=== PATIENT | female | born 1960 | race Caucasian/White ===

== ENCOUNTER 2017-01-09 17:52 | Emergency (ER) | payer BC, OTHER ==
[2017-01-09 18:05] VITALS: BP 158/117
--- NOTE | 2017-01-09 18:59 | ERNOTE ---
Medical Problem HPI - Narrative Date of Service: 01/09/17 - General Chief Complaint: Flu Symptoms Time Seen by Provider: 01/09/17 18:09 Source: patient, RN notes reviewed Exam Limitations: no limitations - Immun/Allergies/Home Medications Allergies/Adverse Reactions: Allergies No Known Allergies Allergy (Verified 01/09/17 18:05) Home Medications: HOME MEDICATIONS Atorvastatin Calcium [Lipitor] 20 mg PO DAILY 12/09/12 [Last Taken Unknown] Sertraline HCl [Zoloft] 200 mg PO DAILY 12/09/12 [Last Taken Unknown] Metoprolol Tartrate 50 mg PO DAILY 12/12/12 [Last Taken Unknown] - History of Present History Narrative: 56 y/o female ambulatory to the ED for a cough, fever, sore throat and body aches that began 2 days ago. She has been taking Tylenol for fever and reports being stuck in bed for 3 days. Review of Systems - Review of Systems Constitutional: Present: fever, chills, fatigue, malaise EYE: Present: no symptoms reported ENT: Present: nose congestion, nasal drainage, sore throat. Absent: ear pain Respiratory: Present: cough. Absent: shortness of breath, wheezing Cardiology: Absent: chest pain, syncope Gastrointestinal/Abdominal: Present: nausea. Absent: vomiting, diarrhea, abdominal pain Genitourinary: Present: no symptoms reported Musculoskeletal: Present: muscle pain, joint pain Skin: Absent: rash, lesions Neurological: Absent: headache, dizziness/light-headedness Endocrine: Present: no symptoms reported Hematologic/Lymphatic: Present: no symptoms reported Psych: Present: no symptoms reported - Patient's Past Medical History Patient History - Medical: No pertinent hx Patient History - Cardiac/Respiratory: Hypertension, Hyperlipidemia Patient History - Cancer: No Hx of Cancer Patient History - Surgical Procedures: Hysterectomy LMP (females 10-50): Menopausal - Social History Living Situations: home Smoking Status: Current every day smoker Cigarettes Packs Per Day: 0.5 Have you smoked in the past 12 months: Yes Alcohol Use: none Drug Use: none - Immunizations History of Influenza Vaccine: No Physical Exam - Physical Exam General Appearance: Present: wd/wn, alert, no apparent distress Eye Exam: Normal inspection: bilateral Ears, Nose, Throat: Present: hearing grossly normal, nasal congestion, pharyngeal erythema. Absent: abnormal TM (R), abnormal TM (L), sinus pain/ drainage Neck: Present: normal inspection, nontender, supple Respiratory: Present: no respiratory distress, normal breath sounds, no accessory muscle use, lungs clear Cardiovascular/Chest: Present: regular rate, rhythm, no murmur, normal peripheral pulses Neurological Exam: Present: alert, oriented, normal mood/affect Skin Exam: Present: normal color, warm/dry ED Progress - Results and Orders Patient's Lab Results:: I have reviewed the patient's lab results. - Vital Signs Patient's Vital Signs:: I have reviewed the patient's vital signs. Vital Signs: Vital Signs 01/09/17 18:03 Temperature 37.5 C Pulse Rate 82 Respiratory 12 Rate Blood Pressure 158/117 O2 Sat by Pulse 98 Oximetry - Progress/Reassessment Chief Complaint: Flu Symptoms Progress:: Unchanged Departure - Departure Clinical Impression: Influenza-like illness Disposition: Home Follow Up Needed Condition: Stable Instructions: Influenza, Adult, [id number], Form - Excuse from Work, School, or Physical Activity Additional Instructions: Continue symptomatic treatment Follow up with your doctor if no improvement by mid-week Referrals: Allen Lin DO [Primary Care Provider] -
== END 2017-01-09 18:55 | disposition home or self-care (01) ==
LOC: ER 17:52
DX: J11.1 Influenza due to unidentified influenza virus with other respiratory manifestations (principal); Z72.0 Tobacco use; I10 Essential (primary) hypertension; E78.5 Hyperlipidemia, unspecified

== ENCOUNTER 2017-01-20 04:58 | Emergency (ER) | payer SELFPAY ==
--- NOTE | 2017-01-20 05:27 | ERNOTE ---
Chest Pain/Cardiac HPI Time Seen by Provider: 01/20/17 05:16 Source: patient Exam Limitations: no limitations Immunizations: IMMUNIZATION HX Immunizations Up to Date Yes History of Influenza Vaccine No Hx Pneumococcal Vaccination No Allergies/Adverse Reactions: Allergies No Known Allergies Allergy (Verified 01/09/17 18:05) Home Medications: HOME MEDICATIONS Atorvastatin Calcium [Lipitor] 20 mg PO DAILY 12/09/12 [Last Taken Unknown] Sertraline HCl [Zoloft] 200 mg PO DAILY 12/09/12 [Last Taken Unknown] Metoprolol Tartrate 50 mg PO DAILY 12/12/12 [Last Taken Unknown] Narrative: Pt was awakened around midnight with severe chest pain, "feels like an elephant sitting on my chest" Timing: constant Severity/Quality: severe, pressure Location: substernal Chest Pain Radiation: no radiation Activities at Onset: sleep Modifying Factors - Improves: Present: nothing Modifying Factors - Worsens: Present: nothing Associated Symptoms: Present: palpitations, nausea - mild Prior Chest Pain/Cardiac Workup: Reports: no prior cardiac workup Review of Systems - Review of Systems Constitutional: Present: recent illness - had influenza 2 weeks ago EYE: Present: no symptoms reported ENT: Present: no symptoms reported Respiratory: Absent: shortness of breath, cough Cardiology: Present: See HPI, chest pain, palpitations Gastrointestinal/Abdominal: Present: nausea. Absent: vomiting, constipation, abdominal pain Genitourinary: Present: no symptoms reported Musculoskeletal: Present: no symptoms reported Skin: Present: no symptoms reported Neurological: Present: no symptoms reported Endocrine: Present: no symptoms reported Hematologic/Lymphatic: Present: no symptoms reported Psych: Present: no symptoms reported - Patient's Past Medical History Patient History - Medical: No pertinent hx, Anxiety Patient History - Cardiac/Respiratory: Hypertension, Hyperlipidemia Patient History - Cancer: No Hx of Cancer Patient History - Surgical Procedures: Hysterectomy, Total Knee Replacement Patient History - Other: None - Social History Living Situations: significant other Psych History: Hx of Anxiety Smoking Status: Current every day smoker Alcohol Use: rarely Drug Use: none - Immunizations Immunizations Up to Date: Yes Hx Pneumococcal Vaccination: No History of Influenza Vaccine: No Physical Exam - Physical Exam General Appearance: Present: wd/wn, alert, mild distress Eye Exam: Normal inspection: bilateral Ears, Nose, Throat: Present: normal ENT inspection Neck: Present: normal inspection, nontender Respiratory: Present: no respiratory distress, normal breath sounds, lungs clear , chest tenderness - mid sternal Cardiovascular/Chest: Present: regular rate, rhythm, no murmur, normal peripheral pulses Gastrointestinal/Abdominal: Present: normal bowel sounds, tenderness - epigastrium. Absent: guarding, rebound Extremity Exam: Present: normal inspection Neurological Exam: Present: alert, oriented, normal mood/affect, no motor/ sensory deficits Skin Exam: Present: normal color, warm/dry Lymphatic Exam: Present: no adenopathy ED Progress - Vital Signs Vital Signs: Vital Signs 01/20/17 05:04 Temperature 37.2 C Pulse Rate 89 Respiratory 16 Rate Blood Pressure 163/103 O2 Sat by Pulse 97 Oximetry - EKG EKG: NSR, RBBB - partial EKG read: Interp. by me - X-Ray X-Ray #1 X-Ray: chest Interpretation: Interp. by me X-ray Comments: nothing acute - Progress/Reassessment Progress:: Improved - with GI coctail Departure - Departure Clinical Impression: Acid reflux Qualifiers: Esophagitis presence: with esophagitis Qualified Code(s): K21.0 - Gastro- esophageal reflux disease with esophagitis Disposition: Home self-care Instructions: Heartburn Additional Instructions: Take zantac 75mg twice a day. Return to ER as needed Referrals: Allen Lin DO [Primary Care Provider] -
[2017-01-20 05:29] LABS: Hematocrit 38.4 % (37.0-47.0); Hemoglobin 13.3 gm/dL (12.5-16.0); Mean Cell Volume 86.7 fl (78-100); Mean Corpuscular Hgb Conc 34.6 g/dl (32-36); Mean Platelet Volume 10.3 fl (6.0-9.5); Neutrophil % 78.2 % (42-75.0); Platelet Count 243 K/mm3 (150-450); Red Blood Count 4.43 M/mm3 (4.2-5.4); Red Cell Distribution Width 12.9 % (11.5-14.0); White Blood Count 14.1 K/mm3 (4.0-10.5)
[2017-01-20 05:41] LABS: INR 0.96 INR (0.90-1.10); Partial Thrombolplastin Time 25.7 Seconds (24-32)
[2017-01-20 05:47] LABS: ALT 30 U/L (19-67); AST 15 U/L (0-48); Albumin * 3.7 gm/dl (3.4-5.0); Alkaline Phosphatase * 78 U/L (50-170); Anion Gap 14.9 mmol/L (6.8-13.8); Bilirubin, Total 0.2 mg/dL (0.0-1.1); Blood Urea Nitrogen 12 mg/dL (3-23); Ca. Corrected For Albumin 8.7 mg/dL (8.4-10.2); Calcium * 8.8 mg/dL (7.9-10.9); Carbon Dioxide 26.1 mmol/L (24-32.6); Chloride 106 mmol/L (97-106); Glucose * 126 mg/dL (70-110); Sodium 143 mmol/L (132-142); Total Protein 6.8 gm/dL (6.2-8.2); Troponin I Less than 0.017 ng/ml (0.00-0.10)
[2017-01-20] MEDS: MAG HYDROX/ALUMINUM HYD/SIMETH 30 ML UDC PO ONE (06:44)
[2017-01-20] MEDS: LIDOCAINE HCL 20 ML UDC PO ONE (06:44)
[2017-01-20] MEDS: SUCRALFATE 1 G/10 ML UDC PO ONE (06:44)
[2017-01-20 07:16] VITALS: BP 170/93
== END 2017-01-20 07:22 | disposition home or self-care (01) ==
LOC: ER 04:58
DX: R07.89 Other chest pain (principal); K21.0 Gastro-esophageal reflux disease with esophagitis; I45.10 Unspecified right bundle-branch block; F17.210 Nicotine dependence, cigarettes, uncomplicated